=== PATIENT | female | born 1950 | race Caucasian/White ===

== ENCOUNTER 2023-03-07 16:24 | Emergency (ER) | payer MEDICARE, SELFPAY ==
--- NOTE | ~2023-03-07 | XR_ITS ---
EXAMINATION: XR CHEST CLINICAL INFORMATION: Pleural effusion COMPARISON: None available. TECHNIQUE: Frontal view of the chest was obtained. FINDINGS: Heart size normal. No evidence of CHF. Right lung is clear. A left-sided pleural effusion is present which is small to moderate. A left-sided chest tube is present with its tip abutting the mediastinum. Left basilar atelectasis is seen. Degenerative changes are present in the spine with scoliosis. Kyphoplasty cement present in L1 vertebral body. XR/XR chest 1V IMPRESSION: Small to moderate left-sided pleural effusion with left basilar atelectasis.
--- NOTE | ~2023-03-07 | CT_ITS ---
EXAMINATION: CT ABDOMEN AND PELVIS WITHOUT CONTRAST CLINICAL INFORMATION: Abdominal distention COMPARISON: Chest radiograph earlier today TECHNIQUE: Multidetector volumetric imaging was performed from the superior aspect of the liver through the pubic symphysis. Sagittal and coronal reformatted images were obtained on the technologist's workstation. This CT examination was performed using dose optimization techniques as appropriate, variously including the following: *Automated exposure control *Adjustment of mA and/or kV according to patient size (this includes techniques or standardized protocols for targeted exams where dose is matched to indication/reason for exam; i.e. extremities or head) *Use of iterative reconstruction technique DLP: 455 mGy-cm FINDINGS: LUNG BASES: Moderate sized left pleural effusion is present with LIVER, GALLBLADDER, AND BILIARY TREE: The liver is cirrhotic in appearance with a nodular border. No focal hepatic lesion or biliary ductal dilatation is present. A single calcified gallstone is present in the gallbladder which is distended but otherwise is unremarkable with no evidence of pericholecystic inflammatory changes. PANCREAS: Unremarkable. SPLEEN: The spleen is enlarged at 14.3 cm. ADRENAL GLANDS: Unremarkable. KIDNEYS AND URETERS: The kidneys are normal in size, shape, and attenuation. No hydronephrosis, hydroureter, or calculi seen. No perinephric stranding. BLADDER: Unremarkable. GASTROINTESTINAL TRACT: A suture line is present around the cecum The small and large bowel are otherwise unremarkable. The appendix is not seen. ABDOMINAL WALL: No significant hernia is appreciated. LYMPH NODES: No retroperitoneal lymphadenopathy is seen. Edema is present in the mesentery. VASCULAR: Calcific atherosclerotic disease present in the aorta and iliofemoral vessels without aneurysm. Kyphoplasty cement is present in T12 and L4. No acute fractures or bony destructive lesions. PELVIC VISCERA: Unremarkable. OSSEOUS STRUCTURES: Unremarkable. CT/CT abdomen pelvis wo IV con IMPRESSION: 1. Cirrhotic liver with associated splenomegaly. 2. Cholelithiasis without cholecystitis. 3. Nonspecific mesenteric edema. 4. Moderate left pleural effusion. 5. Other incidental findings as described above. Fleischner guidelines were followed.
[2023-03-07 16:32] VITALS: BP 113/58; PULSE 102; RESP 18; TEMP 37.1; O2SAT 96
[2023-03-07 16:38] VITALS: BP 113/58; BP 126/74; PULSE 101; PULSE 102; RESP 14; TEMP 36.9; O2SAT 96; O2SAT 97; BMI 23.4
--- NOTE | 2023-03-07 16:46 | ECG_ITS ---
Test Reason : AMS Blood Pressure : / mmHG Vent. Rate : 105 BPM Atrial Rate : 105 BPM P-R Int : 188 ms QRS Dur : 094 ms QT Int : 356 ms P-R-T Axes : 055 122 034 degrees QTc Int : 470 ms Sinus tachycardia Right axis deviation Incomplete right bundle branch block Abnormal ECG No previous ECGs available Referred By: Neville Hammer Electronically Signed By:LALITHA ROSARIO
--- NOTE | 2023-03-07 16:47 | ED.ABDPAIN ---
HPI - Abdominal Pain General Chief Complaint: Abdominal Pain Stated Complaint: distended abd from SNF Time Seen by Provider: 03/07/23 16:33 Source: EMS and RN notes reviewed Mode of arrival: EMS Limitations: no limitations History of Present Illness HPI narrative: Patient is 72 years old from [facility] with history of nonalcoholic hepatic cirrhosis sent from [facility] for abdominal distension for paracentesis, patient denies any significant pain no fever according to chart no vomiting no diarrhea Related Data Previous Rx's Medication Instructions Recorded lactulose 10 gram/15 mL (15 mL) 10 g (15 mL) PO DAILY #473 mL 03/07/23 oral solution Allergies Allergy/AdvReac Type Severity Reaction Status Date / Time amlodipine Allergy Unknown Verified 03/07/23 16:46 ibuprofen [From Motrin] Allergy Unknown Verified 03/07/23 16:46 mold Allergy Unknown Verified 03/07/23 16:46 [id number] Reductase Allergy Unknown Verified 03/07/23 16:46 Inhibitor Review of Systems Review of Systems Yes all other systems are reviewed and are negative [facility] Social History Social History Advance Directives: No Advance Directives Information Provided: No Physical Exam ED Vital Signs: Vital Signs - 24 hr 03/07/23 16:32 03/07/23 16:38 Temperature 98.7 F 98.4 F Pulse Rate 102 H 101 H Respiratory Rate 18 14 Blood Pressure 113/58 L 113/58 L Pulse Oximetry 96 96 Oxygen Delivery Method Room Air Room Air BMI result Body Mass Index 23.4 Appearance: Alert. And awake x2 No acute distress. Eyes: PERRLA, No Nystagmus , icterus+ ENT: Pharynx normal. Oral Mucosa moist Neck: Normal inspection. Neck supple. CVS: Normal heart rate and rhythm. Pulses normal. Respiratory: No respiratory distress. Equal air entry bilateral, no wheezing/rales/rhonchi Abdomen: Soft and nontender. Bowel sounds are present, no mass palpable, no CVA tenderness and no ascites palpable Skin: Skin warm and dry. Normal skin color. Normal skin turgor. Ecchymotic patches diffuse Extremities: No lower extremity edema. No calf tenderness Neuro: Oriented X 2. No focal deficit no hepatic flaps Medical Decision Making Medical Decision Making MDM Narrative: Patient with chronic liver cirrhosis CT scan of the abdomen did not show significant ascites showed pleural effusion and mesentery edema lab workup showed slightly elevated bilirubin to 2.4 potassium of 5.4. Patient was given Lokelma in the ER discharged to [facility] advised to take Lokelma daily and recheck her potassium Lab Data MDM Lab Attestation statement: I reviewed the patient's lab results. 03/07/23 18:54 03/07/23 18:54 Labs: Lab Results 03/07/23 03/07/23 03/07/23 Range/Units 18:54 18:54 18:54 WBC 6.2 (4.8-10.8) X10*3/uL RBC 4.15 L (4.20-5.50) X10*6/uL Hgb 13.0 (12.0-16.0) g/dl Hct 38.5 (37.0-47.0) % MCV 92.8 (80.0-98.0) fL MCH 31.3 (27.0-33.0) pg MCHC 33.8 (31.0-35.0) g/dl RDW 14.8 (11.0-16.0) % Plt Count 65 L (160-400) X10*3/uL MPV 10.8 (9.4-12.3) fL Immature Gran % (Auto) 1.3 H (0.0-0.4) % Neut % (Auto) 72.4 (45-73) % Lymph % (Auto) 10.4 L (20-40) % [place] % (Auto) 13.8 H (2-11) % Eos % (Auto) 1.3 (0-4) % Baso % (Auto) 0.8 (0-2) % Lymph # (Auto) 0.6 L (1.2-4.9) X10*3/uL [place] # (Auto) 0.9 (0.1-1.2) X10*3/uL Eos # (Auto) 0.1 (0.0-0.4) X10*3/uL Baso # (Auto) 0.1 (0.0-0.2) X10*3/uL Abs Immat Gran (auto) 0.08 H (0.00-0.03) X10*3/uL Absolute Neuts (auto) 4.5 (2.0-8.3) x10*3/uL Absolute Nucleated RBC 0.000 (0.0-0.012) X10*3/uL Nucleated RBC % (auto) 0.0 (0.0-0.2) /100WBC Smear Tech's Comments VERIFIED PT 14.5 H (11.1-13.3) SEC INR 1.2 H (0.9-1.1) Sodium (135-145) mmol/L Potassium (3.3-5.1) mmol/L Chloride (96-108) mmol/L Carbon Dioxide (22-29) mmol/L Anion Gap (12-20) BUN (9-16) mg/dL Creatinine (0.5-1.4) mg/dL Estim Creat Clear Calc Estimated GFR Random Glucose (60-115) mg/dL Calcium (8.4-10.2) mg/dL Magnesium (1.6-2.6) mg/dL Total Bilirubin (0.0-1.0) mg/dL AST (5-31) U/L ALT (0-31) U/L Alkaline Phosphatase (39-117) U/L Ammonia 61 H (13-55) umol/L Total Protein (6.5-8.0) g/dL Albumin (3.5-5.0) g/dL COVID-19 (JUAN) (Negative) COVID-19 Clin Com 03/07/23 03/07/23 Range/Units 18:54 18:54 WBC (4.8-10.8) X10*3/uL RBC (4.20-5.50) X10*6/uL Hgb (12.0-16.0) g/dl Hct (37.0-47.0) % MCV (80.0-98.0) fL MCH (27.0-33.0) pg MCHC (31.0-35.0) g/dl RDW (11.0-16.0) % Plt Count (160-400) X10*3/uL MPV (9.4-12.3) fL Immature Gran % (Auto) (0.0-0.4) % Neut % (Auto) (45-73) % Lymph % (Auto) (20-40) % [place] % (Auto) (2-11) % Eos % (Auto) (0-4) % Baso % (Auto) (0-2) % Lymph # (Auto) (1.2-4.9) X10*3/uL [place] # (Auto) (0.1-1.2) X10*3/uL Eos # (Auto) (0.0-0.4) X10*3/uL Baso # (Auto) (0.0-0.2) X10*3/uL Abs Immat Gran (auto) (0.00-0.03) X10*3/uL Absolute Neuts (auto) (2.0-8.3) x10*3/uL Absolute Nucleated RBC (0.0-0.012) X10*3/uL Nucleated RBC % (auto) (0.0-0.2) /100WBC Smear Tech's Comments PT (11.1-13.3) SEC INR (0.9-1.1) Sodium 132 L (135-145) mmol/L Potassium 5.4 H (3.3-5.1) mmol/L Chloride 99 (96-108) mmol/L Carbon Dioxide 20 L (22-29) mmol/L Anion Gap 18 (12-20) BUN 30 H (9-16) mg/dL Creatinine 1.26 (0.5-1.4) mg/dL Estim Creat Clear Calc 38.3 Estimated GFR 42 Random Glucose 110 (60-115) mg/dL Calcium 9.0 (8.4-10.2) mg/dL Magnesium 2.3 (1.6-2.6) mg/dL Total Bilirubin 2.4 H (0.0-1.0) mg/dL AST 44 H (5-31) U/L ALT 32 H (0-31) U/L Alkaline Phosphatase 177 H (39-117) U/L Ammonia (13-55) umol/L Total Protein 7.5 (6.5-8.0) g/dL Albumin 3.0 L (3.5-5.0) g/dL COVID-19 (JUAN) Negative (Negative) COVID-19 Clin Com See Note Discharge Plan Discharge Clinical Impression: Chronic liver disease Patient Disposition: Xfer SNF Transfer Details: Patient's CT scan of the abdomen did not show significant ascites Lab workup showed slightly elevated potassium to 5.4 and ammonia to 61 Instructions: Cirrhosis (ED) Additional Instructions: Avoid food containing high potassium Lactulose daily Follow-up with your PCP Prescriptions: New lactulose 10 gram/15 mL (15 mL) solution 10 g PO DAILY Qty: 473 0RF
--- NOTE | 2023-03-07 17:08 | PC.NURSE ---
ATTEMPTED TO CALL [facility] FOR INFORMATION NO ANSWER
--- NOTE | 2023-03-07 17:56 | MHC.EDTECH ---
this pct along with trainee attempted to draw labs and patient refused, patient stated your not drawing anything on me. RN AWARE
--- NOTE | 2023-03-07 18:05 | PC.NURSE ---
PT REFUSING CARE , PROVIDER IS AWARE
[2023-03-07 19:03] LABS: Basophils Absolute Auto 0.1 X10*3/uL (0.0-0.2); Basophils Percent Auto 0.8 % (0-2); PLT CLUMP 1; Red Cell Distribution Width 14.8 % (11.0-16.0); SCAN SMEAR FLAG 1
[2023-03-07 19:05] LABS: Eosinophils Absolute Auto 0.1 X10*3/uL (0.0-0.4); Eosinophils Percent Auto 1.3 % (0-4); Hematocrit 38.5 % (37.0-47.0); Imm Gran Abs Auto 0.08 X10*3/uL (0.00-0.03); Imm Gran Pct Auto 1.3 % (0.0-0.4); Lymphocytes Absolute Auto 0.6 X10*3/uL (1.2-4.9); Lymphocytes Percent Auto 10.4 % (20-40); MANUAL DIFF FLAG SCAN; Mean Corpuscular HGB Conc 33.8 g/dl (31.0-35.0); Mean Corpuscular Hemoglobin 31.3 pg (27.0-33.0); Mean Corpuscular Volume 92.8 fL (80.0-98.0); Mean Platelet Volume 10.8 fL (9.4-12.3); Monocytes Absolute Auto 0.9 X10*3/uL (0.1-1.2); Monocytes Percent Auto 13.8 % (2-11); Neutrophils Absolute Auto 4.5 x10*3/uL (2.0-8.3); Neutrophils Percent Auto 72.4 % (45-73); Red Blood Count 4.15 X10*6/uL (4.20-5.50)
[2023-03-07 19:16] LABS: Alanine Aminotransferase 32 U/L (0-31); Alkaline Phosphatase 177 U/L (39-117); Anion Gap 18 (12-20); Aspartate Amino Transferase 44 U/L (5-31); Bilirubin Total 2.4 mg/dL (0.0-1.0); Blood Urea Nitrogen 30 mg/dL (9-16); Carbon Dioxide 20 mmol/L (22-29); Chloride 99 mmol/L (96-108); Creatinine Clr Calc Pharmacy 38.3; Estimated Glomerular Filt Rate 42; Glucose Random 110 mg/dL (60-115); Magnesium 2.3 mg/dL (1.6-2.6); Potassium 5.4 mmol/L (3.3-5.1); Sodium 132 mmol/L (135-145); Total Protein 7.5 g/dL (6.5-8.0)
[2023-03-07 19:19] LABS: COVID-19 Test Negative (Negative); IDNOW Serial# 08D9AD1C
[2023-03-07 19:28] LABS: INTERNATIONAL NORM RATIO 1.2 (0.9-1.1); Prothrombin Time 14.5 SEC (11.1-13.3)
[2023-03-07 19:34] LABS: Ammonia 61 umol/L (13-55)
[2023-03-07 19:45] LABS: White Blood Count 6.2 X10*3/uL (4.8-10.8)
[2023-03-07 19:46] LABS: Platelet Count 65 X10*3/uL (160-400); SLIDE REVIEW VERIFIED
--- NOTE | 2023-03-07 20:20 | MHC.EDTECH ---
patient refuse 2 times to blood drawn and vitals.
--- NOTE | 2023-03-07 21:03 | PC.NURSE ---
Addendum entered by Lelo Whitley 03/07/23 21:05: per , will attempt again to give pt meds. Original Note: pt refusing medications. pt says I will not take anything until I have a picture of my grandson
--- NOTE | 2023-03-07 21:42 | PC.NURSE ---
Pt is refusing to take po medications. When approached pt starts screaming No. MD aware
--- NOTE | 2023-03-08 02:09 | MHC.EDTECH ---
Call out to chao at [phone] to book transport for pt back to [facility], estimated eta given was [phone]
--- NOTE | 2023-03-08 02:25 | PC.NURSE ---
Pt resting/sleeping at the bedside refusing vital signs. No apparent distress noted. Pending transport to [facility]. Will continue to monitor.
--- NOTE | 2023-03-08 03:18 | PC.NURSE ---
Nurse report given to nurse Champion at [facility]. Pt returning via EMS.
== END 2023-03-08 03:19 | disposition skilled nursing facility (03) ==
PROVIDERS: Emergency Provider Internal Medicine
DX: K74.60 Unspecified cirrhosis of liver (principal); R60.1 Generalized edema; Z20.822 Contact with and (suspected) exposure to COVID-19
CPT/HCPCS: 36415; 71045; 74176; 80053; 82140; 83735; 85025; 85610; 87635; 93005; 99284

== ENCOUNTER → 2023-03-07 16:46 | Outpatient (BNV) | payer MEDICARE, SELFPAY | PROVIDERS: Emergency Provider Internal Medicine; Visit Provider Internal Medicine | DX: R00.0 Tachycardia, unspecified (principal); R94.31 Abnormal electrocardiogram [ECG] [EKG] | CPT/HCPCS: 93010 ==